=== PATIENT | male | born 1975 | race Hispanic/Latino ===

== ENCOUNTER 2024-02-11 11:46 | Inpatient (IN) | payer OTHER ==
[2024-02-11] VITALS (34 sets, daily range): BP systolic 111–153; BP diastolic 45–78; PULSE 85–91; RESP 12–23; O2SAT 98
[~2024-02-11] VITALS: Ht 175.3 cm; Wt 86.2 kg
[2024-02-11 12:16] LABS: BASOPHILS # (AUTO) 0.04 K/uL (0.00-0.20); BASOPHILS % (AUTO) 0.5 % (0.0-5.0); EOSINOPHILS % (AUTO) 2.3 % (0.0-8.0); HEMATOCRIT 26.4 % (42-54); IMMATURE GRANULOCYTE ABSOLUTE 0.02 K/uL (0-1); LYMPHOCYTES # (AUTO) 1.5 K/uL (1.0-4.8); LYMPHOCYTES % (AUTO) 16.7 % (21.0-51.0); MEAN CORPUSCULAR HEMOGLOBIN 29.5 pg (27.0-33.0); MEAN CORPUSCULAR HGB CONC 33.3 g/dL (32.0-36.0); MEAN CORPUSCULAR VOLUME 88.6 fL (79-99); MONOCYTES % (AUTO) 11.1 % (3.0-13.0); NEUTROPHILS # (AUTO) 6.1 K/uL (1.8-7.7); NEUTROPHILS % (AUTO) 69.2 % (40.0-77.0); PLATELET COUNT (AUTO) 239 K/uL (130-400); RED BLOOD CELL COUNT(AUTO) 2.98 MIL/uL (4.50-6.20); RED CELL DISTRIBUTION WIDTH 13.3 % (11.0-15.5); WHITE BLOOD COUNT (AUTO) 8.8 K/uL (4.8-10.8)
[2024-02-11 12:26] LABS: INR <= 0.93 (0.85-1.15); PROTHROMBIN TIME 10.6 SEC (9.6-11.6)
[2024-02-11 12:27] LABS: PARTIAL THROMBOPLASTIN TIME 31.3 SEC (26.3-35.5)
[2024-02-11 12:33] LABS: ALBUMIN 3.3 g/dL (3.5-5.0); BILIRUBIN,TOTAL 0.3 mg/dL (0.2-1.0); CREATININE 6.5 mg/dL (0.5-1.3); MAGNESIUM 2.4 mg/dL (1.80-2.40); POTASSIUM 4.8 mmol/L (3.5-5.1); TOTAL PROTEIN, SERUM 7.5 g/dL (6.0-8.3)
[2024-02-11 13:21] LABS: ABG BASE EXCESS -19.9 mmol/L (-2.0-3.0); ABG HCO3 7.1 mmol/L (21.0-28.0); ABG OXYGEN SATURATION 97.4 % (95.0-99.0); ABG PCO2 21 mmHg (35-48); ABG PH 7.151 (7.35-7.450); CARBON MONOXIDE 0.3; DEVICE COMMENT RBMELISSA; HHb 2.6; PO2, ARTERIAL BG 114.4 mmHg (83.0-108.0); VENT MODE, BG RA (ROOM AIR)
[2024-02-11] MEDS ORDERED: PHARMACY COMMUNICATION MISC SCH (14:00)
[2024-02-11] MEDS: SODIUM BICARB 50MEQ 50ML VIAL IV ONE (14:07)
[2024-02-11] MEDS: 0.9%NACL 1000ML 1,000 ML IV ONE (14:18)
[2024-02-11] MEDS: THIAMINE HCL 100 MG/ML 2ML VIAL IVP ONE (14:23)
[2024-02-11] MEDS ORDERED: LACTATED RINGERS 1000ML 1,000 ML IV ONE (14:30)
[2024-02-11 14:33] LABS: RETICULOCYTE % (AUTO) 1.62 % (0.42-2.23)
[2024-02-11 14:36] LABS: HEMOGLOBIN A1C 10.3 % (4.0-6.0)
[2024-02-11 14:40] LABS: CREATININE 6.3 mg/dL (0.5-1.3); POTASSIUM 4.8 mmol/L (3.5-5.1)
[2024-02-11 14:55] LABS: % IRON SATURATION 21.2 % (30-44)
[2024-02-11] MEDS ORDERED: ACETAMINOPHEN 500 MG TABLET PO PRN (15:00)
[2024-02-11] MEDS: LACTATED RINGERS 1000ML 1,000 ML IV SCH (15:00)
[2024-02-11] MEDS: SODIUM BICARB 50MEQ 50ML VIAL 150 MEQ in DEXTROSE 5%-WATER 1,000 ML IV SCH (15:27)
[2024-02-11] MEDS: LACTATED RINGERS IV ONE (15:36)
[2024-02-11 16:42] LABS: CREATININE 5.8 mg/dL (0.5-1.3); POTASSIUM 4.5 mmol/L (3.5-5.1)
[2024-02-11 16:47] LABS: % IRON SATURATION 20.1 % (30-44)
[2024-02-11 17:01] LABS: THYROID STIMULATING HORMONE 1.81 uIU/mL (0.36-3.74)
[2024-02-11 17:27] LABS: HIV 1&2 ANTIBODY Non-Reactive (Negative); HIV-1 p24 Antigen Non-Reactive (Negative)
[2024-02-11 18:00] LABS: APPEARANCE,URINE CLEAR (CLEAR); BILIRUBIN,URINE NEGATIVE (NEGATIVE); COLOR,URINE LIGHT-YELLOW (YELLOW); GLUCOSE, URINE (UA) 500 mg/dL (NEGATIVE); KETONES,URINE NEGATIVE (NEGATIVE); LEUKOCYTE ESTERASE ,URINE NEGATIVE Leu/uL (NEGATIVE); NITRATE,URINE NEGATIVE (NEGATIVE); OCCULT BLOOD,URINE NEGATIVE (NEGATIVE); PROTEIN,URINE 30 mg/dL (NEGATIVE); UROBILINOGEN,URINE 0.2 mg/dL (0.2-1.0)
[2024-02-11 18:01] LABS: ADD UA MICROSCOPIC YES
[2024-02-11 18:08] LABS: AMPHET/METH SCREEN,URINE NEGATIVE (NEGATIVE); BARBITURATE SCREEN, URINE NEGATIVE (NEGATIVE); BENZODIAZEPINES SCREEN,URINE NEGATIVE (NEGATIVE); CANNABINOID SCREEN,URINE NEGATIVE (NEGATIVE); COCAINE SCREEN,URINE POSITIVE (NEGATIVE); OPIATE SCREEN,URINE NEGATIVE (NEGATIVE); PHENCYCLIDINE SCREEN,URINE NEGATIVE (NEGATIVE)
[2024-02-11 18:09] LABS: BACTERIA,URINE Rare /HPF (None Seen); RBC,URINE None Seen /HPF (0-1); WBC,URINE None Seen /HPF (0-1)
[2024-02-11] MEDS: PANTOPRAZOLE 40 MG/VIAL IVP SCH (21:32)
[2024-02-11 22:35] LABS: CREATININE 5.1 mg/dL (0.5-1.3); POTASSIUM 4.1 mmol/L (3.5-5.1)
[2024-02-12] VITALS (50 sets, daily range): BP systolic 103–169; BP diastolic 44–95; PULSE 85–96; RESP 4–48; O2SAT 97–99
[2024-02-12 01:47] LABS: CREATININE,URINE RANDOM 162.59 mg/dL (30-135)
[2024-02-12 04:22] LABS: HEMATOCRIT 24.7 % (42-54); MEAN CORPUSCULAR HEMOGLOBIN 29.7 pg (27.0-33.0); MEAN CORPUSCULAR HGB CONC 33.6 g/dL (32.0-36.0); MEAN CORPUSCULAR VOLUME 88.5 fL (79-99); RED BLOOD CELL COUNT(AUTO) 2.79 MIL/uL (4.50-6.20); RED CELL DISTRIBUTION WIDTH 13.2 % (11.0-15.5); WHITE BLOOD COUNT (AUTO) 10.2 K/uL (4.8-10.8)
[2024-02-12 04:51] LABS: ALBUMIN 2.7 g/dL (3.5-5.0); BILIRUBIN,TOTAL 0.3 mg/dL (0.2-1.0); CREATININE 4.6 mg/dL (0.5-1.3); PHOSPHORUS 4.4 mg/dL (2.5-4.9); POTASSIUM 3.9 mmol/L (3.5-5.1); THYROID STIMULATING HORMONE 1.61 uIU/mL (0.36-3.74); TOTAL PROTEIN, SERUM 6.6 g/dL (6.0-8.3); URIC ACID 8.7 mg/dL (2.6-7.2)
[2024-02-12] MEDS: THIAMINE HCL 100 MG/ML 2ML VIAL IVP SCH (08:45)
[2024-02-12] MEDS ORDERED: GLUCAGON 1MG KIT 1 MG ML IM PRN (10:00)
[2024-02-12] MEDS ORDERED: DEXTROSE 50%-WATER 50 ML DISP.SYRIN IV PRN (10:00)
[2024-02-12 10:46] LABS: CREATININE 3.9 mg/dL (0.5-1.3); POTASSIUM 3.7 mmol/L (3.5-5.1)
[2024-02-12] MEDS: INSULIN HUMULIN R 100 UNIT/ML 3ML SQ SCH (11:37)
[2024-02-12] MEDS ORDERED: DAPA10TA PO (14:56)
[2024-02-12] MEDS ORDERED: CETI10TA57 PO (14:56)
[2024-02-12 16:53] LABS: ABG BASE EXCESS -6.4 mmol/L (-2.0-3.0); ABG HCO3 16.9 mmol/L (21.0-28.0); ABG OXYGEN SATURATION 97.4 % (95.0-99.0); ABG PCO2 28 mmHg (35-48); ABG PH 7.395 (7.35-7.450); PO2, ARTERIAL BG 95.6 mmHg (83.0-108.0); VENT MODE, BG RA (ROOM AIR)
[2024-02-12 17:35] LABS: CREATININE 3.4 mg/dL (0.5-1.3); POTASSIUM 3.8 mmol/L (3.5-5.1)
[2024-02-13] VITALS (7 sets, daily range): BP systolic 148–158; BP diastolic 83–94; PULSE 86–88; RESP 16–22; O2SAT 97
[2024-02-13 03:56] LABS: HEMATOCRIT 22.3 % (42-54); MEAN CORPUSCULAR HEMOGLOBIN 29.6 pg (27.0-33.0); MEAN CORPUSCULAR HGB CONC 34.5 g/dL (32.0-36.0); MEAN CORPUSCULAR VOLUME 85.8 fL (79-99); RED BLOOD CELL COUNT(AUTO) 2.6 MIL/uL (4.50-6.20); RED CELL DISTRIBUTION WIDTH 13.2 % (11.0-15.5); WHITE BLOOD COUNT (AUTO) 7.6 K/uL (4.8-10.8)
[2024-02-13 04:12] LABS: CREATININE 2.9 mg/dL (0.5-1.3); MAGNESIUM 1.4 mg/dL (1.80-2.40); PHOSPHORUS 3.3 mg/dL (2.5-4.9); POTASSIUM 3.6 mmol/L (3.5-5.1)
[2024-02-13] MEDS: MAGNESIUM OXIDE 400 MG TABLET PO ONE (05:38)
[2024-02-13] MEDS ORDERED: COMPOUND IV REFRIGERATED 1 EACH IVSOLN MISC PRN (08:00)
[2024-02-13] MEDS: POTASSIUM CHLORIDE 10MEQ SR TAB PO ONE (12:16)
[2024-02-13] MEDS: [UNRECOGNIZED DRUG - MIXTURE] IV SCH (12:17)
[2024-02-13] MEDS: MAGNESIUM 2GM PREMIX 50ML 50 ML IV SCH (15:23)
[2024-02-13] MEDS: INSULIN GLARGINE 100 UNITS/ML 10 ML VIAL SQ SCH (21:01)
[2024-02-14] VITALS (9 sets, daily range): BP systolic 119–152; BP diastolic 53–87; PULSE 85–90; RESP 16–22; O2SAT 97–99
[2024-02-14 05:39] LABS: HEMATOCRIT 24.1 % (42-54); MEAN CORPUSCULAR HEMOGLOBIN 29.9 pg (27.0-33.0); MEAN CORPUSCULAR HGB CONC 34.4 g/dL (32.0-36.0); MEAN CORPUSCULAR VOLUME 86.7 fL (79-99); RED BLOOD CELL COUNT(AUTO) 2.78 MIL/uL (4.50-6.20); RED CELL DISTRIBUTION WIDTH 13.2 % (11.0-15.5); WHITE BLOOD COUNT (AUTO) 7.9 K/uL (4.8-10.8)
[2024-02-14 06:08] LABS: ALBUMIN 2.6 g/dL (3.5-5.0); BILIRUBIN,TOTAL 0.4 mg/dL (0.2-1.0); CREATININE 2.3 mg/dL (0.5-1.3); MAGNESIUM 1.7 mg/dL (1.80-2.40); POTASSIUM 3.4 mmol/L (3.5-5.1); TOTAL PROTEIN, SERUM 6.2 g/dL (6.0-8.3)
[2024-02-14] MEDS: KCL 20 MEQ ERTAB PO ONE (14:59)
[2024-02-15] VITALS (9 sets, daily range): BP systolic 130–154; BP diastolic 73–90; PULSE 63–92; RESP 18–22; O2SAT 95–96
[2024-02-15 06:57] LABS: HEMATOCRIT 21.5 % (42-54); MEAN CORPUSCULAR HEMOGLOBIN 29.5 pg (27.0-33.0); MEAN CORPUSCULAR HGB CONC 34.4 g/dL (32.0-36.0); MEAN CORPUSCULAR VOLUME 85.7 fL (79-99); RED BLOOD CELL COUNT(AUTO) 2.51 MIL/uL (4.50-6.20); RED CELL DISTRIBUTION WIDTH 13.2 % (11.0-15.5); WHITE BLOOD COUNT (AUTO) 6.5 K/uL (4.8-10.8)
[2024-02-15 07:08] LABS: ALBUMIN 2.3 g/dL (3.5-5.0); BILIRUBIN,TOTAL 0.3 mg/dL (0.2-1.0); CREATININE 2.2 mg/dL (0.5-1.3); POTASSIUM 3.5 mmol/L (3.5-5.1); TOTAL PROTEIN, SERUM 5.9 g/dL (6.0-8.3)
[2024-02-15] MEDS: TAMSULOSIN HCL 0.4 MG CAP.ER.24H PO SCH (15:30)
[2024-02-15 16:19] LABS: HEMATOCRIT 24.2 % (42-54); MEAN CORPUSCULAR HEMOGLOBIN 29.3 pg (27.0-33.0); MEAN CORPUSCULAR HGB CONC 33.1 g/dL (32.0-36.0); MEAN CORPUSCULAR VOLUME 88.6 fL (79-99); RED BLOOD CELL COUNT(AUTO) 2.73 MIL/uL (4.50-6.20); RED CELL DISTRIBUTION WIDTH 13.2 % (11.0-15.5); WHITE BLOOD COUNT (AUTO) 6.5 K/uL (4.8-10.8)
[2024-02-16] VITALS (8 sets, daily range): BP systolic 143–159; BP diastolic 80–94; PULSE 84–90; RESP 16–20; O2SAT 96–98
[2024-02-16 00:43] LABS: HEMATOCRIT 21.6 % (42-54); MEAN CORPUSCULAR HEMOGLOBIN 29.7 pg (27.0-33.0); MEAN CORPUSCULAR HGB CONC 33.8 g/dL (32.0-36.0); MEAN CORPUSCULAR VOLUME 87.8 fL (79-99); RED BLOOD CELL COUNT(AUTO) 2.46 MIL/uL (4.50-6.20); WHITE BLOOD COUNT (AUTO) 6.4 K/uL (4.8-10.8)
[2024-02-16 03:55] LABS: HEMATOCRIT 23.3 % (42-54); MEAN CORPUSCULAR HEMOGLOBIN 29.3 pg (27.0-33.0); MEAN CORPUSCULAR VOLUME 88.6 fL (79-99); RED BLOOD CELL COUNT(AUTO) 2.63 MIL/uL (4.50-6.20); RED CELL DISTRIBUTION WIDTH 13.1 % (11.0-15.5); WHITE BLOOD COUNT (AUTO) 6.4 K/uL (4.8-10.8)
[2024-02-16 04:03] LABS: CREATININE 2.3 mg/dL (0.5-1.3); MAGNESIUM 1.6 mg/dL (1.80-2.40); POTASSIUM 3.9 mmol/L (3.5-5.1)
[2024-02-16] MEDS: MAGNESIUM 2GM PREMIX 50ML 50 ML IV SCH (04:24)
[2024-02-16 08:57] LABS: HEMATOCRIT 22.8 % (42-54); MEAN CORPUSCULAR HEMOGLOBIN 29.3 pg (27.0-33.0); MEAN CORPUSCULAR HGB CONC 33.3 g/dL (32.0-36.0); RED BLOOD CELL COUNT(AUTO) 2.59 MIL/uL (4.50-6.20); RED CELL DISTRIBUTION WIDTH 13.1 % (11.0-15.5); WHITE BLOOD COUNT (AUTO) 6.4 K/uL (4.8-10.8)
[2024-02-16] MEDS: Vitamin B Complex/Vit C/Folic Acid PO SCH (09:01)
[2024-02-16] MEDS ORDERED: HYDRALAZINE 20MG/ML VIAL IV PRN (13:00)
[2024-02-16] MEDS ORDERED: MAGNESIUM 2GM PREMIX 50ML 50 ML IV SCH (13:00)
[2024-02-16] MEDS: AMLODIPINE 5 MG TAB PO SCH (13:48)
[2024-02-16 16:43] LABS: HEMATOCRIT 25.3 % (42-54); MEAN CORPUSCULAR HEMOGLOBIN 29.4 pg (27.0-33.0); MEAN CORPUSCULAR HGB CONC 32.4 g/dL (32.0-36.0); MEAN CORPUSCULAR VOLUME 90.7 fL (79-99); RED BLOOD CELL COUNT(AUTO) 2.79 MIL/uL (4.50-6.20)
[2024-02-16 20:09] LABS: C DIFFICILE TOXIN A/B Not Detected (Not Detected); ENTEROAGGREGATIVE ECOLI Not Detected (Not Detected); GIARDIA LAMBLIA Not Detected (Not Detected); PLESIOMONAS SHIGELOIDES Not Detected (Not Detected); SAPOVIRUS Not Detected (Not Detected); SHIGELLA/ENTEROINVASIVE E COLI Not Detected (Not Detected); VIBRIO Not Detected (Not Detected); VIBRIO CHOLERAE Not Detected (Not Detected)
[2024-02-17] VITALS (14 sets, daily range): BP systolic 123–153; BP diastolic 60–94; PULSE 78–88; RESP 14–18; O2SAT 98
[2024-02-17 03:57] LABS: BASOPHILS # (AUTO) 0.03 K/uL (0.00-0.20); BASOPHILS % (AUTO) 0.5 % (0.0-5.0); EOSINOPHILS # (AUTO) 0.56 K/uL (0.00-0.70); EOSINOPHILS % (AUTO) 8.8 % (0.0-8.0); HEMATOCRIT 22.3 % (42-54); IMMATURE GRANULOCYTE ABSOLUTE 0.01 K/uL (0-1); LYMPHOCYTES # (AUTO) 1.6 K/uL (1.0-4.8); LYMPHOCYTES % (AUTO) 24.6 % (21.0-51.0); MEAN CORPUSCULAR HEMOGLOBIN 28.9 pg (27.0-33.0); MEAN CORPUSCULAR HGB CONC 33.2 g/dL (32.0-36.0); MEAN CORPUSCULAR VOLUME 87.1 fL (79-99); MONOCYTES # (AUTO) 0.6 K/uL (0.1-1.0); MONOCYTES % (AUTO) 9.2 % (3.0-13.0); NEUTROPHILS # (AUTO) 3.6 K/uL (1.8-7.7); NEUTROPHILS % (AUTO) 56.7 % (40.0-77.0); PLATELET COUNT (AUTO) 241 K/uL (130-400); RED BLOOD CELL COUNT(AUTO) 2.56 MIL/uL (4.50-6.20); RED CELL DISTRIBUTION WIDTH 12.9 % (11.0-15.5); WHITE BLOOD COUNT (AUTO) 6.4 K/uL (4.8-10.8)
[2024-02-17 04:13] LABS: ALBUMIN 2.4 g/dL (3.5-5.0); BILIRUBIN,TOTAL 0.3 mg/dL (0.2-1.0); CREATININE 2.3 mg/dL (0.5-1.3); MAGNESIUM 1.7 mg/dL (1.80-2.40); PHOSPHORUS 2.9 mg/dL (2.5-4.9); POTASSIUM 3.5 mmol/L (3.5-5.1); TOTAL PROTEIN, SERUM 6.1 g/dL (6.0-8.3)
[2024-02-17] MEDS ORDERED: PROPOFOL 10 MG/ML 20ML VIAL IV ONE (10:38)
[2024-02-17] MEDS ORDERED: AMLO-257 PO (12:19)
[2024-02-17] MEDS ORDERED: Folic Acid/Vitamin B Comp W-C PO (12:19)
[2024-02-17] MEDS ORDERED: TAMS-1 PO (12:19)
[2024-02-17] MEDS ORDERED: FOLI0.8T53 PO (12:20)
[2024-02-17] MEDS ORDERED: INSU3INS3 SQ (12:21)
[2024-02-17] MEDS ORDERED: GLIP2.5T2 PO (12:23)
[2024-02-17] MEDS ORDERED: PANT40TA55 PO (12:26)
[2024-02-17] MEDS ORDERED: PEG 3350/NA SULF,BICARB,CL/KCL 4000 ML SOLN PO ONE (18:00)
[2024-02-17] MEDS: PEG 3350/NA SULF,BICARB,CL/KCL 4000 ML SOLN PO STA (18:16)
[2024-02-17] MEDS: TAMSULOSIN HCL 0.4 MG CAP.ER.24H PO SCH (22:45)
[2024-02-18] VITALS (23 sets, daily range): BP systolic 104–167; BP diastolic 64–110; PULSE 83–96; RESP 14–20; O2SAT 98–100
[2024-02-18 03:40] LABS: HEMATOCRIT 24.4 % (42-54); MEAN CORPUSCULAR HEMOGLOBIN 28.8 pg (27.0-33.0); MEAN CORPUSCULAR HGB CONC 32.4 g/dL (32.0-36.0); MEAN CORPUSCULAR VOLUME 89.1 fL (79-99); RED BLOOD CELL COUNT(AUTO) 2.74 MIL/uL (4.50-6.20); WHITE BLOOD COUNT (AUTO) 7.1 K/uL (4.8-10.8)
[2024-02-18 03:58] LABS: ALBUMIN 2.7 g/dL (3.5-5.0); BILIRUBIN,TOTAL 0.2 mg/dL (0.2-1.0); CREATININE 2.2 mg/dL (0.5-1.3); PHOSPHORUS 2.5 mg/dL (2.5-4.9); POTASSIUM 3.7 mmol/L (3.5-5.1); TOTAL PROTEIN, SERUM 6.5 g/dL (6.0-8.3)
[2024-02-18] MEDS ORDERED: GLIPIZIDE XL 2.5MG TAB PO SCH (08:00)
[2024-02-18] MEDS: IRON SUCROSE COMPLEX 100 MG/5 ML VIAL IV ONE (10:28)
[2024-02-18] MEDS ORDERED: LIDOCAINE HCL 1% 20 ML VIAL ONE (13:43)
[2024-02-18] MEDS ORDERED: PROPOFOL 10 MG/ML 20ML VIAL IV ONE ×2 (13:43→14:14)
[2024-02-19] VITALS (8 sets, daily range): BP systolic 113–147; BP diastolic 68–90; PULSE 82–87; RESP 16–18; O2SAT 98
[2024-02-19 04:02] LABS: BASOPHILS # (AUTO) 0.04 K/uL (0.00-0.20); BASOPHILS % (AUTO) 0.6 % (0.0-5.0); EOSINOPHILS % (AUTO) 7.2 % (0.0-8.0); HEMATOCRIT 24.8 % (42-54); IMMATURE GRANULOCYTE ABSOLUTE 0.01 K/uL (0-1); LYMPHOCYTES # (AUTO) 1.7 K/uL (1.0-4.8); LYMPHOCYTES % (AUTO) 24.2 % (21.0-51.0); MEAN CORPUSCULAR HGB CONC 32.7 g/dL (32.0-36.0); MEAN CORPUSCULAR VOLUME 88.9 fL (79-99); MONOCYTES # (AUTO) 0.6 K/uL (0.1-1.0); MONOCYTES % (AUTO) 9.1 % (3.0-13.0); NEUTROPHILS # (AUTO) 4.1 K/uL (1.8-7.7); NEUTROPHILS % (AUTO) 58.8 % (40.0-77.0); PLATELET COUNT (AUTO) 268 K/uL (130-400); RED BLOOD CELL COUNT(AUTO) 2.79 MIL/uL (4.50-6.20); RED CELL DISTRIBUTION WIDTH 12.8 % (11.0-15.5); WHITE BLOOD COUNT (AUTO) 6.9 K/uL (4.8-10.8)
[2024-02-19 04:21] LABS: CREATININE 2.3 mg/dL (0.5-1.3); PHOSPHORUS 3.3 mg/dL (2.5-4.9); POTASSIUM 3.7 mmol/L (3.5-5.1)
[2024-02-19] MEDS ORDERED: INSLAN SQ (11:42)
[2024-02-20 03:04] VITALS: BP 149/90; PULSE 86; RESP 16
[2024-02-20 07:00] VITALS: BP 145/81; PULSE 81; RESP 20
[2024-02-20] MEDS: FERROUS SULFATE 325 MG TABLET.DR PO SCH (08:28)
[2024-02-20 08:33] VITALS: O2SAT 100
[2024-02-20 11:00] VITALS: BP 139/86; PULSE 87; RESP 20
== END 2024-02-20 12:45 | disposition home or self-care (01) | DRG 682 ==
LOC: EDH 11:46 → EDHIP 13:55 → 2BH 17:13 → 2DH 02-12 15:53
PROVIDERS: ADMIT Internal Medicine; ATTEND Internal Medicine
PROC: 0DB58ZX Excision of Esophagus, Via Natural or Artificial Opening Endoscopic, Diagnostic (ICD-10-PCS; principal; 2024-02-17)
PROC: 0DB68ZX Excision of Stomach, Via Natural or Artificial Opening Endoscopic, Diagnostic (ICD-10-PCS; 2024-02-17)
PROC: 0DJD8ZZ Inspection of Lower Intestinal Tract, Via Natural or Artificial Opening Endoscopic (ICD-10-PCS; 2024-02-18)
DX: N17.9 Acute kidney failure, unspecified (principal); K22.11 Ulcer of esophagus with bleeding; K57.31 Diverticulosis of large intestine without perforation or abscess with bleeding; D62 Acute posthemorrhagic anemia; N13.30 Unspecified hydronephrosis; E87.20 Acidosis, unspecified; E11.65 Type 2 diabetes mellitus with hyperglycemia; D50.9 Iron deficiency anemia, unspecified; E11.22 Type 2 diabetes mellitus with diabetic chronic kidney disease; E88.810 Metabolic syndrome; I12.9 Hypertensive chronic kidney disease with stage 1 through stage 4 chronic kidney disease, or unspecified chronic kidney disease; K52.9 Noninfective gastroenteritis and colitis, unspecified; L98.9 Disorder of the skin and subcutaneous tissue, unspecified; N18.9 Chronic kidney disease, unspecified; N31.9 Neuromuscular dysfunction of bladder, unspecified; R33.8 Other retention of urine; K64.4 Residual hemorrhoidal skin tags; Z91.158 Patient's noncompliance with renal dialysis for other reason; Z79.899 Other long term (current) drug therapy
CPT/HCPCS: 36415; 36600; 43239; 45378; 71045; 74176; 76376; 76700; 78264; 80048; 80051; 80053; 80061; 80305; 81001; 82010; 82270; 82435; 82533; 82550; 82570; 82607; 82728; 82803; 82947; 82948; 83036; 83540; 83550; 83605; 83630; 83690; 83735; 83935; 84100; 84132; 84145; 84295; 84439; 84443; 84481; 84484; 84550; 85018; 85025; 85027; 85610; 85730; 86701; 87040; 87046; 87077; 87177; 87186; 87324; 87390; 87507; 93005; 93306; 93356; 96365; 96375; A4344; A4606; A9541; C9113; G0378; J0360; J1756; J1815; J2704; J2916; J3411; J3475; J3490; J7030; J7070; J7120; A4215; A4221; A4222; A4223; A4620; A4663; A7002